=== PATIENT | female | born 1950 | race Caucasian/White ===

== ENCOUNTER 2019-03-22 08:45 | Emergency (ER) | payer BC, OTHER ==
[~2019-03-22] VITALS: Ht 165.1 cm; Wt 104.3 kg
[2019-03-22] MEDS ORDERED: MOBIC15 MG PO (11:17)
[2019-03-22 11:36] VITALS: BP 169/61
== END 2019-03-22 11:47 | disposition home or self-care (01) ==
LOC: ER 08:45
DX: M79.671 Pain in right foot (principal)

== ENCOUNTER 2021-04-25 22:48 | Inpatient (IN) | payer BC ==
[~2021-04-25] VITALS: Ht 162.6 cm; Wt 95.3 kg
[~2021-04-25 22:48] MED LIST: MOBIC15 MG PO
[2021-04-26 02:29] LABS: URINE BILIRUBIN NEGATIVE (Negative); URINE BLOOD TRACE (Negative); URINE CLARITY CLEAR; URINE COLOR YELLOW; URINE GLUCOSE-RANDOM* NEGATIVE (Negative); URINE KETONES NEGATIVE (Negative); URINE LEUKOCYTES-REFLEX NEGATIVE (Negative); URINE NITRITE-REFLEX NEGATIVE (Negative); URINE PROTEIN (DIPSTICK) NEGATIVE (Negative); URINE SPECIFIC GRAVITY 1.015 (1.005-1.035); URINE UROBILINOGEN 0.2 E.U./dl (0.2-1.0)
[2021-04-26 04:56] LABS: CALCIUM 9.2 mg/dL (8.5-10.1); CREATININE 0.7 mg/dL (0.6-1.0); POTASSIUM 4.2 mmol/L (3.5-5.1)
[2021-04-26 04:59] LABS: ABSOLUTE NEUTROPHILS 7.1 thou/uL (1.4-8.2); BASOPHILS 0.6 % (0.0-2.0); EOSINOPHILS 2.4 % (0.0-3.0); HEMATOCRIT 38.8 % (37.0-47.0); HEMOGLOBIN 12.5 gm/dL (12.0-15.0); LYMPHOCYTES 22.7 % (24.0-44.0); MCH 27.4 pg (26.0-34.0); MCHC 32.2 g/dL (28.0-37.0); MCV 85.2 fL (80.0-100.0); MONOCYTES 7.4 % (1.0-8.0); PLATELET COUNT 277 thou/uL (150-400); POLYS 66.9 % (36.0-66.0); RBC 4.56 mil/uL (4.20-5.00); RDW 13.5 % (10.5-14.5); WBC 10.6 thou/uL (4.0-11.0)
[2021-04-26 05:01] LABS: ALBUMIN 3.4 g/dL (3.4-5.0); TOTAL BILIRUBIN 0.3 mg/dL (0.2-1.0); TOTAL PROTEIN 7.6 g/dL (6.4-8.2)
[2021-04-26 07:41] VITALS: BP 160/91
[2021-04-26 10:35] LABS: CHOLESTEROL 167 mg/dL (<200); HDL CHOLESTEROL 49 mg/dL (>40); LDL CHOLESTEROL 108 mg/dL (<100); TC:HDL 3.4 Ratio (Not establshd); TRIGLYCERIDE 54 mg/dL (<150); VLDL 11 mg/dL (<40)
[2021-04-26 12:00] VITALS: BP 140/61
[2021-04-26 12:00] LABS: APTT 36.7 Seconds (24.5-32.8); INR 1.02; PROTIME 11.1 Seconds (10.5-12.1)
[2021-04-26] MEDS ORDERED: ULTRAM50 MG PO (13:25)
[2021-04-26] MEDS ORDERED: ACETAMINOPHEN325 M1 PO ×2 (13:25→14:41)
[2021-04-26] MEDS ORDERED: ELIQUIS5 M1 PO (13:25)
[2021-04-26] MEDS ORDERED: FELODIPINE 5 MG5 M1 PO ×2 (13:25→14:41)
[2021-04-26] MEDS ORDERED: XARELTO20 MG PO (14:41)
[2021-04-26] MEDS ORDERED: XARELTO15 MG PO (14:41)
[2021-04-26 16:06] VITALS: BP 138/81
--- NOTE | 2021-04-27 10:17 | NUR ---
PATIENT DISCHARGED HOME PRIOR TO OT EVALUATION BEING COMPLETED.
== END 2021-04-26 16:06 | disposition home or self-care (01) | DRG 301 ==
LOC: ER 22:48 → ADMC 04-26 06:31
PROVIDERS: Emergency Medicine; Nurse Practitioner; ADMIT Internal Medicine; ATTEND Internal Medicine
DX: I82.413 Acute embolism and thrombosis of femoral vein, bilateral (principal); E66.01 Morbid (severe) obesity due to excess calories; I10 Essential (primary) hypertension; Z20.822 Contact with and (suspected) exposure to COVID-19; Z68.36 Body mass index [BMI] 36.0-36.9, adult; Z79.899 Other long term (current) drug therapy
CPT/HCPCS: 10040